=== PATIENT | male | born 1965 | race Caucasian/White ===

== ENCOUNTER 2024-05-17 06:33 | Day surgery (SDC) | payer BC, SELFPAY ==
[2024-05-17 06:53] VITALS: BP 152/86
[2024-05-17 07:03] VITALS: BMI 27.6
[2024-05-17 07:05] VITALS: BP 152/86
[2024-05-17] MEDS: LOW STRENGTH ASPIRIN 324 MG PO (07:29)
[2024-05-17 09:19] VITALS: BP 148/75
--- NOTE | 2024-05-17 09:35 | ITS.CL.CATH ---
Bridge Manager - Catheterization
Cardiac Catheterization
Procedure Report:
LEFT HEART CATHETERIZATION
Date of Procedure: May 17, 2024
Referring: Dr. Debi Tidwell, Dr. Brian Barros
PROCEDURES:
1. Coronary angiography
INDICATION: Symptomatic severe aortic stenosis
ACCESS: Right radial artery, 6 Greenlandic sheath
HEMODYNAMICS : (mmHg)
AO (s/d) : 137/87
CORONARY FINDINGS
DOMINANCE: Right
LEFT MAIN: Normal
LEFT ANTERIOR DESCENDING: The LAD arises normally from the left main and runs in the anterior interventricular groove. 2 diagonal branches arise from the mid LAD. The first diagonal branch is large and the second diagonal branch is a moderate
caliber vessel. Both diagonal branches are widely patent. The LAD remains a large caliber vessel beyond the second diagonal branch and wraps completely around the apex supplying a portion of the inferior wall.
CIRCUMFLEX: The circumflex is a large-caliber nondominant vessel. OM1 and OM 2 are both very small caliber vessels. The circumflex essentially terminates in a large OM 3 with only minor irregularities. The AV continuation of the circumflex
supplies a small posterolateral branch
RIGHT CORONARY ARTERY: The right coronary artery is a large-caliber dominant vessel that is widely patent. Only minor irregularities are noted.
VENTRICULOGRAPHY: Not done
RADIATION SUMMARY: Fluoro Time (min): 3.7, Dose (mGy): 350, DAP (Gy.cm2) : 25.5
Closure Device: TR band
CONCLUSIONS
1. Nonobstructive coronary disease
RECOMMENDATIONS
1. CT surgical evaluation planned on 05/18
Copy to: Dr. Debi Tidwell, Dr. Brian Barros
[2024-05-17 11:51] VITALS: BP 133/62
== END 2024-05-17 11:53 | disposition home or self-care (01) ==
LOC: CATH 06:33
PROVIDERS: ATTENDING PHYSICIAN Internal Medicine Interventional Cardiology; OTHER PHYSICIAN Internal Medicine Interventional Cardiology
DX: I35.0 Nonrheumatic aortic (valve) stenosis (principal); I25.10 Atherosclerotic heart disease of native coronary artery without angina pectoris; E78.5 Hyperlipidemia, unspecified
CPT/HCPCS: 93005; 93454; C1894; Q9967

== ENCOUNTER 2024-06-27 04:51 | Inpatient (IN) | payer BC, SELFPAY ==
[2024-06-08 11:51] VITALS: BMI 27.6
[2024-06-08 12:46] LABS: % Basophils 0.4 % (0-2); % Immature Granulocytes 0.4 % (0-0.5); % Lymphocytes 13.1 % (20.5-51.1); % Monocytes 11.7 % (1.7-9.3); % Neutrophils 73.4 % (42.2-75.2); Absolute Eosinophils 0.1 10^3/uL (0-0.7); Absolute Lymphocytes 0.7 10^3/uL (1.2-3.4); Absolute Monocytes 0.6 10^3/uL (0.1-0.6); Absolute Neutrophils 3.8 10^3/uL (1.4-6.5); Hematocrit 44.6 % (39.0-52.0); Hemoglobin 15.3 g/dL (13.0-18.0); Mean Corp Hgb Conc. 34.3 g/dL (33.0-37.0); Mean Corpuscular Hgb 29.7 pg (27.0-31.0); Mean Corpuscular Volume 86.4 fL (80.0-94.0); Mean Platelet Volume 9.2 fL (7.4-10.4); Nucleated Red Blood Cells % 0 % (-); Platelet Count 235 10^3/uL (130-400); Red Blood Cell Count 5.16 10^6/uL (4.70-6.10); Red Cell Dist. Width 12.9 % (11.5-14.5); White Blood Cell Count 5.2 10^3/uL (4.8-10.8)
[2024-06-08 12:48] LABS: Urine Albumin Negative (Neg - Trace); Urine Bilirubin Negative (Negative); Urine Character Clear (Clear); Urine Color Yellow; Urine Glucose Negative (Negative); Urine Ketone Negative (Negative); Urine Leukocyte Negative (Negative); Urine Nitrite Negative (Negative); Urine Occult Blood Negative (Negative); Urine Specific Gravity 1.005 (<1.030); Urine Urobilinogen Negative (Neg - 1+)
[2024-06-08 12:49] LABS: INR 0.92; PT 12.3 Sec (11.4-14.6)
[2024-06-08 12:50] LABS: APTT 30.9 Sec (23.4-35.0)
[2024-06-08 13:06] LABS: Glycohemoglobin (HgbA1c) 5.6 % (4.0-5.6)
--- NOTE | 2024-06-08 13:34 | CM ---
Chart reviewed. Met with the patient in PAT. Reviewed preoperative and postoperative instructions and restrictions. Gave patient 2 soaps, along with showering guidelines. Patient is independent of ADLS, working, lives alone in a 2 STH, 0 MARGARITA, 0
DME. Patient's brother in law is Stewartotilia Tidwell and the patient is going to be staying with his sister and Dr. Tidwell at [address] [place] [address]. Plan is for the patient to go to his sisters house with CT Transitional RN.
--- NOTE | 2024-06-08 13:41 | CM ---
Chart reviewed. Patient is in the OR today. Patient is independent of ADLS, lives alone in a 1 STH, 0 MARGARITA, 0 DME. Plan is for the patient to return home with CT Transitional RN. CM to follow
[2024-06-08 14:05] LABS: ALT (SGPT) 43 U/L (0-50); AST (SGOT) 43 U/L (17-59); Albumin 5.2 g/dl (3.5-5.0); Alkaline Phosphatase 83 U/L (38-126); Blood Urea Nitrogen 17 mg/dl (9-20); Calcium 10.2 mg/dl (8.4-10.2); Carbon Dioxide 28 mmol/L (22-30); Chloride 100 mmol/L (98-107); Direct Bilirubin 0.2 mg/dl (0.0-0.4); Estimated Creatinine Clearance 82 ml/min; Glucose 102 mg/dl (70-99); Potassium 4.6 mmol/L (3.5-5.1); Sodium 137 mmol/L (135-145); Total Protein 7.5 g/dl (6.3-8.2); eGFR > 60.00
[2024-06-27] VITALS (23 sets, daily range): BP systolic 102–149; BP diastolic 56–90; BMI 26.9
--- NOTE | 2024-06-27 06:04 | W.CVOR.SURPR ---
CVOR Surgeon Immed Pre Op
-
I have examined this patient prior to performance of the scheduled procedure.
The patient's condition is unchanged from the time of the dictated/written History and
Physical and the patient is able to undergo the scheduled procedure.
AVR (patient has opted for a biological prosthesis) + Ascending aorta replacement
[2024-06-27] MEDS: LOPRESSOR 12.5 MG PO (06:08)
[2024-06-27] MEDS: PROTONIX 40 MG PO (06:08)
[2024-06-27] MEDS: MAGNESIUM OXIDE 500 MG PO (06:08)
[2024-06-27] MEDS: BACTROBAN 2% OINTMENT 1 APPLIC NASAL ×2 (06:14→19:39)
--- NOTE | 2024-06-27 07:00 | PTCARENOTE ---
Pt admitted to room 2261. Pt confirmed 2 CHG showers at home and NPO status since midnight. VS and weight obtained. Pt clipped and wiped w/ CHG wipes. Admission questions completed. Home medications confirmed. Pt oriented to room. Questions
encouraged and answered. Ordered medications administered - see DEC. Call campuzano within reach.
[2024-06-27 07:25] LABS: ACT+ - POC 93 Seconds (82-134)
[2024-06-27 08:11] LABS: Urine Albumin Negative (Neg - Trace); Urine Bilirubin Negative (Negative); Urine Character Clear (Clear); Urine Color Yellow; Urine Glucose Negative (Negative); Urine Ketone Negative (Negative); Urine Leukocyte Negative (Negative); Urine Nitrite Negative (Negative); Urine Occult Blood Negative (Negative); Urine Urobilinogen Negative (Neg - 1+)
[2024-06-27 08:39] LABS: ACT+ - POC 599 Seconds (82-134)
[2024-06-27 08:57] LABS: B.E. - POC -1.1 mmol/L; Glucose - POC 98 mg/dl (65-99); HCO3 - POC 24 mmol/L (21-29); Hematocrit - POC 37 % PCV (42-52); Hemodilution- POC Yes; Hemoglobin Calculated - POC 12.6; Ionized Calcium - POC 1.23 mmol/L (1.12-1.27); O2 Saturation %Calculated-POC 99.9 5 (92-96); PCO2 - POC 41 mmHg (35-45); PO2 - POC 286 mmHg (80-100); POC Comment PRE; Potassium - POC 3.8 mmol/L (3.6-5.0); Sodium - POC 142 mmol/L (135-145); pH - POC 7.38 (7.35-7.45)
[2024-06-27 09:07] LABS: ACT+ - POC 543 Seconds (82-134)
[2024-06-27 09:24] LABS: B.E. - POC 2.7 mmol/L; Glucose - POC 142 mg/dl (65-99); HCO3 - POC 26 mmol/L (21-29); Hematocrit - POC 29 % PCV (42-52); Hemodilution- POC Yes; Hemoglobin Calculated - POC 9.8; Ionized Calcium - POC 1.04 mmol/L (1.12-1.27); O2 Saturation %Calculated-POC 98.7 5 (92-96); PCO2 - POC 35 mmHg (35-45); PO2 - POC 111 mmHg (80-100); POC Comment CPB; Potassium - POC 5.4 mmol/L (3.6-5.0); Sodium - POC 137 mmol/L (135-145); pH - POC 7.48 (7.35-7.45)
[2024-06-27 09:34] LABS: ACT+ - POC 483 Seconds (82-134)
[2024-06-27 09:55] LABS: B.E. - POC 2.2 mmol/L; Glucose - POC 190 mg/dl (65-99); HCO3 - POC 26 mmol/L (21-29); Hematocrit - POC 32 % PCV (42-52); Hemodilution- POC Yes; Ionized Calcium - POC 1.08 mmol/L (1.12-1.27); O2 Saturation %Calculated-POC 99.9 5 (92-96); PCO2 - POC 37 mmHg (35-45); PO2 - POC 242 mmHg (80-100); POC Comment CPB; Potassium - POC 5.8 mmol/L (3.6-5.0); Sodium - POC 137 mmol/L (135-145); pH - POC 7.46 (7.35-7.45)
[2024-06-27 10:04] LABS: ACT+ - POC 479 Seconds (82-134)
[2024-06-27 10:22] LABS: B.E. - POC 1.1 mmol/L; Glucose - POC 159 mg/dl (65-99); HCO3 - POC 26 mmol/L (21-29); Hematocrit - POC 36 % PCV (42-52); Hemodilution- POC Yes; Hemoglobin Calculated - POC 12.3; Ionized Calcium - POC 1.16 mmol/L (1.12-1.27); O2 Saturation %Calculated-POC 99.6 5 (92-96); PCO2 - POC 41 mmHg (35-45); PO2 - POC 173 mmHg (80-100); POC Comment CPB; Potassium - POC 4.6 mmol/L (3.6-5.0); Sodium - POC 140 mmol/L (135-145); pH - POC 7.41 (7.35-7.45)
[2024-06-27 10:31] LABS: ACT+ - POC 469 Seconds (82-134)
[2024-06-27 10:42] LABS: B.E. - POC -0.5 mmol/L; Glucose - POC 138 mg/dl (65-99); HCO3 - POC 25 mmol/L (21-29); Hematocrit - POC 39 % PCV (42-52); Hemodilution- POC Yes; Hemoglobin Calculated - POC 13.2; Ionized Calcium - POC 1.11 mmol/L (1.12-1.27); O2 Saturation %Calculated-POC 99.9 5 (92-96); PCO2 - POC 41 mmHg (35-45); PO2 - POC 302 mmHg (80-100); POC Comment WARM; Potassium - POC 4.5 mmol/L (3.6-5.0); Sodium - POC 141 mmol/L (135-145); pH - POC 7.39 (7.35-7.45)
[2024-06-27 10:47] LABS: ACT+ - POC 115 Seconds (82-134)
--- NOTE | 2024-06-27 10:53 | CM ---
pt in OR today, cm to follow.
[2024-06-27] MEDS: LR 250 IV ×2 (11:30→16:15)
[2024-06-27 11:37] LABS: Glucose - POC 119 mg/dl (65-99); HCO3 - POC 24 mmol/L (21-29); Hematocrit - POC 33 % PCV (42-52); Hemodilution- POC Yes; Hemoglobin Calculated - POC 11.4; Ionized Calcium - POC 1.38 mmol/L (1.12-1.27); PCO2 - POC 43 mmHg (35-45); PO2 - POC 430 mmHg (80-100); POC Comment POST; Potassium - POC 4.2 mmol/L (3.6-5.0); Sodium - POC 142 mmol/L (135-145); pH - POC 7.35 (7.35-7.45)
--- NOTE | 2024-06-27 11:39 | W.PN.CARDCBS ---
Addendum entered and electronically signed by Galindo Velasco MD 06/27/24 14:14:
I saw and examined the patient.
The ACCOUNT DEVELOPMENT REPRESENTATIVE or PA's note was reviewed and I agree with the note.
Comment: General: Awake on the ventilator
Neck: Supple, no JVD, HJR, carotids +2 B/L, no bruits bilaterally.
Heart: Non displaced PMI, RRR, no murmurs, No S3, S4, no rubs.
Lungs: Scattered rhonchi
Sternal dressings noted
Extremities: No clubbing, cyanosis or edema bilaterally.
Neuro: Grossly nonfocal, awake, alert and oriented x3.
Domo has a history of bicuspid aortic valve with aortic stenosis. He is seen status post SAVR are an ascending aortic root replacement. Currently remains intubated but awake. He is on no pressors. He remains in sinus rhythm.
Original Note:
Today's Communication / Plan
-
Check post op EKG
Continue post op care
Impression / Plan
-
PCP: Dr. Darrin Trevino
Obstetrics Gynecology Physician: Dr. Tidwell
Impression:
Bicuspid aortic valve
Severe s/p AVR and ascending aorta replacement 06/27/2024 w/ Dr Barros
Thoracic Aortic aneurysm
HLD
Echo 05/03/2024: EF 55 to 60%, GLS -18.2%, bicuspid aortic valve with severe , mean gradient 48 mmHg, ascending aorta dilation at 4.5 cm
Plan:
-Known bicuspid aortic valve with severe s/p SAVR and ascending aorta replacement 06/27/2024.
-Seen post op. Remains intubated, sedated, but waking up.
-CI 1.96.
-Check post Op EKG. Few short pauses noted on tele, in SR.
-No blood products given intra op. Post-op hgb stable at 12.8.
-CXR completed.
-Continue aspirin, crestor, zetia.
-Continue post op care. BP stable.
Progress Note - Obstetrics Gynecology Physician
Subjective
Date of Service: June 27, 2024
Remains intubated, waking up.
Objective
Labs:
Labs
Hgb 15.3 g/dL (13.0-18.0) 06/08/24 12:03
Hct 44.6 % (39.0-52.0) 06/08/24 12:03
Plt Count 235 10^3/uL (130-400) 06/08/24 12:03
PT 12.3 Sec (11.4-14.6) 06/08/24 12:03
INR 0.92 06/08/24 12:03
APTT 30.9 Sec (23.4-35.0) 06/08/24 12:03
Sodium 137 mmol/L (135-145) 06/08/24 12:03
Potassium 4.6 mmol/L (3.5-5.1) 06/08/24 12:03
BUN 17 mg/dl (9-20) 06/08/24 12:03
Creatinine 1.0 mg/dL (0.7-1.3) 06/08/24 12:03
Glucose 102 mg/dl (70-99) H 06/08/24 12:03
Vital Signs and I&O:
Vital Signs
Temp Pulse Resp Pulse Ox
98.1 F 61 16 99
06/27/24 05:42 06/27/24 05:42 06/27/24 05:42 06/27/24 05:42
Vital Signs
Temp Pulse Resp Pulse Ox
98.1 F 61 16 99
06/27/24 05:42 06/27/24 05:42 06/27/24 05:42 06/27/24 05:42
Physical Exam
Physical Exam
GEN: No distress, intubated
HEENT: supple, anicteric, mmm
LUNGS: CTA b/l, no wheezes/rales
CV: Reg, S1/S2, no murmur
EXT: No clubbing, cyanosis, or edema
NEURO: Gross non-focal
SKIN: Warm, dry, no rash. Sternal incision well approximated
[2024-06-27] MEDS: DILAUDID 0.5 MG IV (11:51)
[2024-06-27 11:53] LABS: Glucose - Point of Care 110 mg/dl (70-99)
[2024-06-27] MEDS: NSS 500 IV (11:53)
[2024-06-27 11:58] LABS: B.E. -1.8 mmol/L; HCO3 23.7 mmol/L (21-28); Ionized Calcium 1.22 mMOL/L (1.15-1.33); PCO2 42 mmHg (35-48); PO2 199 mmHg (83-108); Potassium 3.9 mMOL/L (3.5-5.1); Sodium 135 mMOL/L (136-145); pH 7.36 (7.35-7.45)
[2024-06-27 12:00] LABS: Hematocrit 36.7 % (39.0-52.0); Hemoglobin 12.8 g/dL (13.0-18.0); Platelet Count 152 10^3/uL (130-400)
[2024-06-27 12:07] LABS: INR 1.46; PT 17.6 Sec (11.4-14.6)
[2024-06-27 12:08] LABS: APTT 29.8 Sec (23.4-35.0)
[2024-06-27] MEDS: KCL 50 IV (12:10)
--- NOTE | 2024-06-27 12:15 | PTCARENOTE ---
Received pt from CVOR at 1130; pt intubated and sedated; NSR on monitor and VSS; Epicardial V wire set to back up VVI 50/6/0.8; RIGregory Boyd floated to 42, Left A-line and PIV x1 patent; Insulin, Levo and Precedex infusing see flow sheet for
details; Lungs diminished; ET 8@22; SIMV 60%, 12,5,550; CT x2 to -20 wall suction, no air leak and no crepitus noted; hypoactive bowel sounds; Beltran catheter draining clear yellow urine; palpable pulses throughout; no edema noted; all surgical sites
C/D/I; see nursing documentation for further details.
CI 1.96
CO 4.08
SVR 1470
CV PLUMBING AND HEATING CONTRACTOR at bedside LR 250ml Bolus given for hypotension.
--- NOTE | 2024-06-27 12:18 | CON.INTV ---
Consultation
Consultation Request
Date/Time Consultation Requested: 06/27/2024
Date/Time Consultation Performed: 06/27/2024
Requesting Provider: Dr. Barros
Performing Provider: Dr. Sergio Funes
Reason for Consultation: Postoperative ICU care/AVR plus ascending aortic replace
Medical History
-
History of Present Illness:
58-year-old man with known bicuspid valve morphology, with preserved ejection fraction and history of progressive aortic stenosis. Also found to have ascending aortic aneurysm.
Admitted to the hospital 06/27/2020 for AVR plus ascending aortic aneurysm repair.
Surgery underwent on 06/27/[address] Barros. No immediate complications from
Patient critical care unit where he is intubated, mechanical ventilation. Sedated
Past Medical History
Past Medical History: Other (See assessment plan)
Social History
Tobacco: Other ( never smoker)
Alcohol: Occasional
Drug: None
Personal:
Living: Alone
Family History
Family History: Unable to Obtain
Allergies / Home Medications
Allergies
Allergy/AdvReac Type Severity Reaction Status Date / Time
bee venom protein (honey bee) Allergy Swelling Verified 06/06/24 09:43
Home Medications
�Medication �Instructions �Recorded �Confirmed �Last Taken �Type
ezetimibe 10 mg tablet (Zetia) 10 mg PO HS 05/17/24 06/27/24 06/26/24 21:00 History
rosuvastatin 20 mg tablet 20 mg PO 06/06/24 06/27/24 06/26/24 21:00 History
Review of Systems
-
Unable to Obtain full review of systems at this time due to: Patient Intubation
Vitals / Labs / Diagnostic Testing
Vital Signs
Temp Pulse Resp BP Pulse Ox
96.6 F L 67 10 135/83 98
06/27/24 12:00 06/27/24 12:10 06/27/24 12:10 06/27/24 05:24 06/27/24 12:10
Laboratory Results
06/27/24
11:32
PT 17.6 H
INR 1.46
APTT 29.8
pH 7.36
pCO2 42
pO2 199 H
HCO3 23.7
O2 Delivery Level
Diagnostic Testing:
Physical Exam
-
HEENT: Normocephalic
Cardiovascular: S1/S2 and Regular Rhythm
Respiratory: Clear and Non-Labored Respirations
GI: Soft and Non Distended
Neurology: Other (Sedated, intubated on mechanical ventilation.) and Other (Opening eyes, waking up from anesthesia)
Skin: Warm
General: Comfortable
Assessment
-
Status post AVR and ascending aortic Replacement 06/27/2024-Dr. Barros
Postoperative mechanical ventilation
Conditions present prior admission:
Bicuspid aortic valve
Echo 05/03/2024: EF 55 to 60%, GLS -18.2%, bicuspid aortic valve with severe , mean gradient 48 mmHg, ascending aorta dilation at 4.5 cm
Dyslipidemia
Severe aortic stenosis
Thoracic aortic aneurysm
Assessment and plan:
He is doing well postop-currently on mechanical ventilation and appears comfortable.
ABG reviewed:Adequate oxygenation and ventilation.
Continue SIMV mode with no change
Spontaneous breathing trial per protocol once sedation wears off.
Anemia noted-no evidence of acute bleeding
Follow H&H serially
Hemodynamics -stable off vasopressors.
Arterial line not be a catheter in place
Will monitor urinary output and renal function
Chest tube with no excessive drainage-no air leak.
Chest x-ray reviewed 06/27/2024: With no pneumothorax or fluid collections. ET tube right above the nicholas-has been adjusted.
Remain nothing by mouth
Head of the bed elevation
Glycemic control per protocol
DVT prophylaxis when safe from the surgical perspective.
Critical care statement: A total of 32 minutes of critical care time was provided for this patient today. This includes management of unstable vital signs, evaluation of the patient at bedside, reviewing the patient's pertinent medical records
including ventilator settings, arterial blood gases, radiographs, microbiology, laboratory evaluations and discussion with primary team, critical care nursing, and respiratory therapy.
[2024-06-27] MEDS: ANCEF 10 IV ×2 (12:26)
[2024-06-27] MEDS: NEURONTIN PO ×2 (12:26→16:32)
--- NOTE | 2024-06-27 12:28 | W.PN.CT.SURG ---
CT Surgery Operative Note
-
CARDIAC SURGERY OPERATIVE REPORT
Preoperative Diagnosis: Aortic valve stenosis, severe with bicuspid valve morphology and ascending aortic aneurysm
Postoperative Diagnosis: Same
Procedure(s) Performed:
1. Standard sternotomy with aortic and right atrial cannulation
2. Surgical aortic valve replacement [25 mm bioprosthesis]
3. Ascending aortic replacement with a 30 mm tube graft spanning from the level of the commissures up to the distal ascending aorta
4. Placement of temporary ventricular pacing wire
5. Transesophageal echocardiography
Date of Surgery: 06/27/24
Comorbidities:
1. Congenital bicuspid aortic valve
2. Severe aortic valve stenosis
3. Ascending thoracic aneurysm, without rupture
4. Hyperlipidemia
Attending Surgeon: Brian Barros MD, MS
Assistants: Brian Robertson PA-C (present and necessary to fast food assistant restaurant manager, retraction, suction, exposure, suture management, and wound closure under my direction)
Anesthesiology: Jeffery Mcgowan MD and Colin Goodwin CRNA
Scrub and Circulating RNs: Mary Ramos RN, Toby Singh RN
Pilot Safety Inspector: Taryn Avendano CCP
Anesthesia: GETA
EBL: per perfusion records
Products: NO Blood product transfusions, he received 500cc of autologous blood scavenged from the surgical field, washed with CellSaver and returned to the patient
CPB Time: 112 minutes
Aortic Cross Clamp Time: 95 minutes
Indication(s) for Procedures: This is a 58-year-old male who is quite active. While biking he was feeling shortness of breath and he had known bicuspid valve morphology with moderate aortic valve stenosis. Subsequent echocardiogram demonstrated
severe aortic valve stenosis. He also had a known mild ascending thoracic aneurysm. Multidisciplinary team discussion with the overall consensus that given his progression and aortic valve stenosis and mild growth in his ascending thoracic aorta
4.5 cm with bicuspid aortic valve morphology, surgical intervention was deemed appropriate.
Aortic Valve Description: True type 0, 180/180 degree bicuspid aortic valve, coronary orientation was also 180 degrees / 180 degrees. Heavily calcified with extension into the annulus.
Findings: His left ventricular ejection fraction preoperatively was preserved at 65% with no regional wall motion abnormalities. He had mild to moderate degree of left ventricular hypertrophy. Following surgery his EF remained the same at 65% with
no new regional wall motion abnormalities. RV function and size were both normal. His aortic valve was heavily calcified with extension into the annulus. He was a true type 0 bicuspid aortic valve. His coronary arteries were also distributed
exactly 180 degrees / 180 degrees for 1 another. His ascending thoracic aorta was dilated and appeared abnormal and thinned out. Cannulation was performed high up towards the mid arch. His aortic valve was resected and replaced with a 25 mm
prosthesis secured into place with a total of 17 nonpledgeted 2 Ethibond sutures from LVOT through annulus through sewing cuff. These were done with core knots. The ascending thoracic aorta was then resected down past the sinotubular junction to
the level of the commissures. It was sized using a freestyle sizer to a 30 mm graft which was sewn first to the proximal portion of the root at the level of the commissures and then up to the distal ascending thoracic aorta where the caliber neck
to back down to normal size with tissue quality appearing to be normal. The suture lines were both secured using a gasket of bovine pericardium. At the conclusion of the case, he had normal left ventricular function, cardiac index was 2 and above,
no regional wall motion abnormalities, no transfusion of blood products, and was in sinus rhythm without inotropic support.
Specimen(s): Ascending thoracic aorta, and aortic valve.
Prosthesis:
1. 25mm JAY Inspiris Resilia AVR, SN [id number]
2. 30mm Ascending Aortic Straight tube graft, [place], SN [id number]
3. Bovine Pericardium, SN [id number]
Description of Procedure: The patient was taken to the operating room. Their identity and procedure to be performed were verified and they were positioned supine on the operating table. Induction via general anesthesia with endotracheal intubation
was performed and central venous access and arterial monitoring were inserted. A preoperative transesophageal echocardiogram was performed to assess cardiac function and valvular function. The patient was then prepped and draped from chin to feet in
a sterile fashion. A preoperative time-out was performed with all members of the team present. A midline chest incision was performed along with median sternotomy. The innominate vein was isolated. Full heparinization was given (a total of 43,000
units). We created a pericardial well. The aortic cannulation site was chosen where it was soft, pliable, and free of calcium. Cannulation was performed with an arterial cannula in the ascending aorta and a triple-stage venous cannula through the
right atrial appendage. The arterial cannula line had an appropriate bounce and correlating pressures with test dosing. Next, a root vent/antegrade cannula was inserted into the ascending aorta. The ACT was confirmed to be over 400 and retrograde
autologous priming was performed before commencing cardiopulmonary bypass. The pulmonary artery was away from the aorta to facilitate a clamp site and aortotomy. A left ventricular vent was placed at the right superior pulmonary vein and
secured. The aortic cross-clamp was placed after decreasing the flow on the bypass and mean arterial pressure. A total of 1.2L initial dose of antegrade Del-Nido cardioplegia solution was given and planned for re-dosing every 75 minutes as
necessary. There was rapid electro-mechanical arrest of the heart at 350 cc of cardioplegia. The left ventricle was observed for distention on echocardiogram and manual palpation. Cold slush was placed into a sponge and topically on the RV while we
systemically cooled to 34 degrees centigrade.
Carbon dioxide was used to flood the field. We manually identified the location of the right coronary take off. An aortotomy was made approximately 2cm above the sinotubular junction and the aorta was fully transected. Stay sutures were then placed
onto the root and ascending thoracic aorta. The location of both left and right coronary vessels were visualized in the root.any abnormal ascending thoracic aneurysmal tissue was cut down and removed from the surgical field. I also cut down to the
level of the commissures approximately 1 cm. The leaflets were excised and sent for pathological assessment. The annulus was debrided of any calcium being mindful of the annulus and membranous septum. The root and left ventricular outflow tract were
thoroughly irrigated to remove any debris. A total of 17 Non-pledgeted 2-0 ethibond inverted annular sutures were placed MDPP-lb-nlope circumferentially. These were brought through the sewing cuff of the prosthetic valve which as then parachuted
into place. The left and right coronary ostia were visualized and were unobstructed by the valve. A Cor-Knot device was used to secure the annular sutures. The valve was inspected and was well seated. At this point using a freestyle sizer I sized
the root to approximately 30 mm just above the level of the commissures. I then took a 30 mm straight graft and transected it. I then inverted the graft and placed it inside the new bioprosthetic valve into the LVOT and left ventricle. I then
sewed the proximal anastomosis using 4-0 Prolene in a running fashion with bovine pericardium and the outside as a gasket. Prevaleak was then used to reinforce the suture line needle holes. The graft was then everted out of the LVOT and then sized
in order to accommodate the appropriate length to reach the distal ascending thoracic aorta. Any remaining abnormal ascending thoracic aortic tissue was resected. The distal anastomosis was performed using 4-0 Prolene in a running fashion again
using a strip of bovine pericardium as a gasket. The distal suture line was also reinforced with PrevaLeak. De-airing maneuvers were performed by placing an 18-gauge needle into the ascending thoracic graft and feeling the heart, and temporary
bipolar ventricular pacing wires were placed on the base of the right ventricle. The patient was placed in a trendelenburg position and flows on bypass were lowered. The aortic cross clamp was removed and flows were slowly brought back up. The
aortotomy appeared hemostatic. Transesophageal echocardiography revealed no paravalvular leak and appropriate prosthetic function. The arch and distal thoracic aorta were normal on transesophageal echocardiogram. Once de-airing was satisfactory,
the left ventricular and root vents were removed. After verifying acceptable parameters, we initiated weaning from cardiopulmonary bypass. Once we were off cardiopulmonary bypass, the venous cannula was clamped and removed. A test dose of protamine
was administered and the patient was monitored for any adverse reaction before resuming protamine. Once half of the protamine dose was delivered, pump suckers were turned off and the systolic blood pressure was lowered for aortic decannulation. The
aortic cannula was removed and pursestrings were tied down. All cannulation sites were oversewn with a 4-0 prolene. The aortotomy suture lines were inspected and hemostasis was confirmed. Mediastinal hemostasis was obtained. Two 24Fr Jack drains
were placed within the pericardium. The sternum was approximated with 4 #7 single and 3 #8 double stainless steel wires. Fascia was approximated with #1 vicryl suture. The subcutaneous, dermis and epidermis were closed in layers in a running
fashion. The skin wound was cleansed and dressed.
All instrument, sponge, and needle counts were confirmed to be correct x 2 at the end of the operation. The patient was transferred to the cardiac intensive care unit in critical but stable condition.
I, Dr. Brian Barros, was present, scrubbed for, and performed all critical elements of this procedure.
Brian Barros MD, MS
Cardiothoracic Surgeon
[facility]
This operative dictation was created using the [employer] dictation system. Please excuse any grammatical, typographical, or 'sound alike' errors
[2024-06-27 12:32] LABS: Blood Urea Nitrogen 22 mg/dl (9-20); Estimated Creatinine Clearance 94 ml/min; Glucose 103 mg/dl (70-99); Magnesium 2.6 mg/dl (1.6-2.3)
--- NOTE | 2024-06-27 13:08 | W.PN.UPDATE ---
Update Note
Progress Note Update
58-year-old male was electively admitted on 06/27/2024 for AVR and ascending aortic replacement due to severe , bicuspid aortic valve, and thoracic aortic aneurysm.
IV fluids: 1200
U.O.:� 400
Cell Saver: 500
Blood:� none
Wires:� bipolar V-wire
Gtts: Levophed @ 4, Precedex @ 0.6, Insulin @ 0.5
Periop antibiotic: Ancef
�
NEURO: sedated on Precedex, pupils +2mm B/L
RESP: #8OT @24cm> 500/60%/14/5. Lungs clear B/L. 2 mediastinal (0cc on arrival) chest tubes to -20cm suction. Sanguineous drainage
CV: RRR +S1, S2, no S3, no�rub, no murmur. Dermabond to median sternotomy. RIJ w/[employer] locked @ 45cm. PA 26/15; CVP 10
ABD: round, soft, no BS
EXT: no edema, +2/4 DP pulses B/L, no femoral bruit, left radial A-line intact
: Beltran with clear yellow urine
�
A/P: POD #0 s/p aortic valve replacement [#25 mm Inspiris Reselia]; Ascending aortic replacement #30 mm tube graft spanning from the level of the commissures up to the distal ascending aorta
TAHIRA: report pending
- CXR with ETT at nicholas. Pulled back to 22cm and repeat CXR confirms adequate placement
- wean and extubate
- keep SBP</= 110mmHg in immediate post-op period
- will need instruction regarding antibiotic prophylaxis for dental and invasive procedures
- will need pre-discharge TTE
�
# Hyperlipidemia
- resume�home Crestor 20mg daily and Zetia 10mg daily
[2024-06-27 13:31] LABS: Glucose - Point of Care 109 mg/dl (70-99)
[2024-06-27] MEDS: TYLENOL PO (13:43)
[2024-06-27 13:49] LABS: B.E. 0.5 mmol/L; HCO3 22.6 mmol/L (21-28); Ionized Calcium 1.16 mMOL/L (1.15-1.33); PCO2 29 mmHg (35-48); PO2 166 mmHg (83-108); Potassium 4.2 mMOL/L (3.5-5.1); Sodium 135 mMOL/L (136-145)
[2024-06-27 14:05] LABS: Glucose - Point of Care 92 mg/dl (70-99)
[2024-06-27] MEDS: CALCIUM CHLORIDE 10% SYRINGE 50 MG IV (14:32)
[2024-06-27] MEDS: CALCIUM CHLORIDE 10% SYRINGE 50 ML IV (14:32)
[2024-06-27 15:04] LABS: Glucose - Point of Care 103 mg/dl (70-99)
[2024-06-27 15:06] LABS: B.E. -0.2 mmol/L; HCO3 21.8 mmol/L (21-28); PCO2 28 mmHg (35-48); PO2 175 mmHg (83-108)
[2024-06-27] MEDS: TORADOL 15 MG IV ×2 (15:26→21:03)
--- NOTE | 2024-06-27 15:29 | RESPNOTE ---
patient extubated at 1525 without incident. 100% on 6L.
[2024-06-27 15:30] LABS: Hematocrit 38.4 % (39.0-52.0); Hemoglobin 13.6 g/dL (13.0-18.0); Platelet Count 176 10^3/uL (130-400)
--- NOTE | 2024-06-27 15:30 | PTCARENOTE ---
ABGs reviewed with CV DIRECTOR AIRPORT OPERATIONS; respiratory at bedside and pt extubated.
[2024-06-27 16:25] LABS: Glucose - Point of Care 100 mg/dl (70-99)
[2024-06-27] MEDS: DILAUDID 0.25 MG IV (16:32)
[2024-06-27] MEDS: ANCEF 5 IV (16:32)
[2024-06-27] MEDS: TORADOL IV (16:39)
[2024-06-27 18:22] LABS: Glucose - Point of Care 102 mg/dl (70-99)
--- NOTE | 2024-06-27 18:27 | PTCARENOTE ---
Pt resting comfortably in bed; Sinus Skyler on monitor and VSS; Insulin infusing per protocol see flow sheet for details; assessment unchanged.
[2024-06-27] MEDS: OFIRMEV 100 IV (18:57)
[2024-06-27] MEDS: SENOKOT-S 1 TABLET PO (19:34)
[2024-06-27] MEDS: ROXICODONE 5 MG PO (19:35)
--- NOTE | 2024-06-27 19:40 | PTCARENOTE ---
Assumed care of patient at 1900. Patient found in bed at time of assessment. Patient is Aox4, follows commands appropriately, moves all extremities. Lung sounds are diminished throughout, patient 99% on 6L via NC, patient has CTx2: 2xmeds draining
red sanguineous to single atrium. Heart sounds have a regular rate and rhythm, patient is SR/SB with BBB and occasional v pacing on the monitor. Patient has V wires with VVI settings 50/8/0.8. There is a rub present on auscultation. Patient has
normal palpable pulses and no edema is noted. Patient has hypoactive BS throughout soft nontender abdomen and there is a amador in place draining clear yellow urine. Patient has a sternal incision that is approx with surg adhesive REINALDO and 4x4 [address]
dressing over CT wounds that is CDI. Patient has R IJ cordis with swan at 42 cm, L radial johan, R FA PIV. Patient has an insulin gtt and is receiving Cordis/VIP KVO. Vital signs as follows: T-98.8 HR-56 BP-106/56 MAP-72 RR-13 PAP- 21/12 CVP-11.
Patient with c/o 6/10 sternal pain 2/2 sternal incision and chest tubes. Given IV ofirmev and Anamika 5x1 at this time. Will continue to monitor pain.
[2024-06-27 20:08] LABS: Glucose - Point of Care 93 mg/dl (70-99)
[2024-06-27] MEDS: NITROGLYCERIN PREMIX 250 IV (20:35)
[2024-06-27] MEDS: ZETIA 10 MG PO (21:02)
[2024-06-27] MEDS: CRESTOR 20 MG PO (21:03)
[2024-06-27] MEDS: NEURONTIN 100 MG PO (21:03)
[2024-06-27 21:17] LABS: Glucose - Point of Care 122 mg/dl (70-99)
--- NOTE | 2024-06-27 21:50 | PTCARENOTE ---
Patient noted to have SBP higher than parameters outlined in cardene order SBP<110. CT PA notified. Received orders for Nitro gtt titrated to keep SBP<120. Start at 5mcg for SBP of 124 at 2034. Will continue to titrate per parameters.
[2024-06-27 22:07] LABS: Glucose - Point of Care 110 mg/dl (70-99)
[2024-06-27] MEDS: TYLENOL 1000 MG PO (23:04)
[2024-06-27 23:07] LABS: Glucose - Point of Care 102 mg/dl (70-99)
[2024-06-28] VITALS (26 sets, daily range): BP systolic 96–144; BP diastolic 51–72; PULSE 76; O2SAT 96–100; BMI 26.8
[2024-06-28 00:07] LABS: Glucose - Point of Care 103 mg/dl (70-99)
--- NOTE | 2024-06-28 00:31 | PTCARENOTE ---
Patient reassessed. VSS. Patient is in SR at this time no paced beats. Nitro at 10. Insulin column 1. No c/o pain at this time. Patient is stable.
[2024-06-28] MEDS: ANCEF 5 IV ×2 (01:05→09:02)
[2024-06-28 02:07] LABS: Glucose - Point of Care 102 mg/dl (70-99)
[2024-06-28] MEDS: ROXICODONE 5 MG PO (02:30)
[2024-06-28] MEDS: TORADOL 15 MG IV ×5 (03:05→23:27)
--- NOTE | 2024-06-28 03:18 | W.PN.CT ---
Today's Communication / Plan
-
Plan:
-No major issues overnight. Hemodynamically and neurologically intact
-Successfully extubated on 06/27/24 @ 1525
-Weaned of Levophed and NTG gtt (to maintain SBP </= 110) overnight. Remains on insulin gtt per protocol
-Last CI 2.53, U/O since OR 1300
-Postop EKG c/w acute pericarditis, +rub noted. Started on Toradol and Colchicine
-Cont. current meds (ASA, Zetia, Crestor; holding Amiodarone and BB given postop intermittent pacer dependence)
-D/C'd twyla and a-line this AM @ 0430
-Will d/c amador this AM @ 0600
-Telemetry phase today once off insulin gtt
-Monitor chest tube drainage: 2Meds 130/310
-Maintain cordis
-Maintain temporary V wires (will pull before d/c home)
-OOB into chair/Ambulate
-Wean off of O2 as tolerated
-Encourage use of IS
Assessment / Plan
-
Assessment:
-S/P sternotomy/Surgical aortic valve replacement [25 mm bioprosthesis]/Ascending aortic replacement with a 30 mm tube graft spanning from the level of the commissures up to the distal ascending aorta, by Dr. Barros, 06/28/24, pod#1
-Congenital bicuspid aortic valve
-Severe aortic valve stenosis
-Ascending thoracic aneurysm (4.3 cm), without rupture
-LVEF 60-65% per intraop TAHIRA
-Hyperlipidemia
-S/p R TKA, 05/25/2023
-S/P Achilles repair, 1989
-Acute postop blood loss/Anemia (stable, received 500 cc of cell saver intraop)
-Acute postop atelectasis
-Acute postop hypovolemia with subsequent hypervolemia
-Acute postop pericarditis (+rub)
Discussed patient care with: Cardiology, Nursing, Respiratory Therapy, Pharmacy and Care Team
Subjective
Procedure
-S/P sternotomy/Surgical aortic valve replacement [25 mm bioprosthesis]/Ascending aortic replacement with a 30 mm tube graft spanning from the level of the commissures up to the distal ascending aorta, by Dr. Barros, 06/28/24
-
Date of Service: June 28, 2024
Pt c/o incisional pain, relieved by current analgesia. EKG with global st-elevation c/w acute pericarditis, started on Toradol and Colchicine
Objective Data
-
PT 17.6 Sec (11.4-14.6) H 06/27/24 11:32
INR 1.46 06/27/24 11:32
APTT 29.8 Sec (23.4-35.0) 06/27/24 11:32
Vital Signs
Vital Signs
Temp Pulse Resp BP Pulse Ox
98.9 F 75 14 116/64 97
06/28/24 03:04 06/28/24 03:04 06/28/24 03:04 06/28/24 03:04 06/28/24 03:04
CT Intake/Output/Weight
06/27/24 06/27/24 06/28/24
06:59 18:59 06:59
Intake Total 838.1 / 1072.2 234.1 / 1072.2
Output Total 1025 / 1495 470 / 1495
Balance -186.9 / -422.8 -235.9 / -422.8
SaO2: 97 (2L)
Physical Exam
-
General: Awake, Oriented and AOx3
Cardiovascular: Regular rate & rhythm, No Murmurs and Rub
Respiratory: Decreased Breath Sounds (at bases, otherwise clear)
Sternum: Stable
Incision: Clean, Dry, Intact and Dressing Intact
Extremities: No Edema
Data Reviewed
-
Lab Results: Results Reviewed
Medications: Active Meds Reviewed
Chest X-Ray: Report Reviewed and Image Reviewed
ECG: Report Reviewed and Image Reviewed
[2024-06-28 03:48] LABS: Hematocrit 34.3 % (39.0-52.0); Hemoglobin 12.2 g/dL (13.0-18.0); Mean Corp Hgb Conc. 35.6 g/dL (33.0-37.0); Mean Corpuscular Hgb 30.5 pg (27.0-31.0); Mean Corpuscular Volume 85.8 fL (80.0-94.0); Mean Platelet Volume 9.6 fL (7.4-10.4); Platelet Count 157 10^3/uL (130-400); Red Cell Dist. Width 13.2 % (11.5-14.5); White Blood Cell Count 12.8 10^3/uL (4.8-10.8)
[2024-06-28 04:08] LABS: Blood Urea Nitrogen 25 mg/dl (9-20); Calcium 8.7 mg/dl (8.4-10.2); Carbon Dioxide 22 mmol/L (22-30); Chloride 109 mmol/L (98-107); Estimated Creatinine Clearance 85 ml/min; Glucose 98 mg/dl (70-99); Magnesium 1.8 mg/dl (1.6-2.3); Potassium 4.6 mmol/L (3.5-5.1); Sodium 141 mmol/L (135-145); eGFR > 60.00
[2024-06-28 04:10] LABS: Glucose - Point of Care 115 mg/dl (70-99)
[2024-06-28 05:03] LABS: Hepatitis C Antibody Negative (Negative)
--- NOTE | 2024-06-28 06:00 | PTCARENOTE ---
Patient reassessed. VSS. Labs obtained. AM hygiene care provided. Patient delined. Ruby discontinued DTV 1200. OOB to chair without difficultly.
[2024-06-28] MEDS: TYLENOL 1000 MG PO ×3 (06:33→21:28)
--- NOTE | 2024-06-28 07:14 | ECGCV ---
Lizzie Gamboa notified of ECG critical value identified by electronic interpretation on ECG completed on 06/28/24, at 0500.
[2024-06-28] MEDS: SENOKOT-S 1 TABLET PO ×2 (07:44→19:32)
[2024-06-28] MEDS: VITAMIN C 500 MG PO (07:44)
[2024-06-28] MEDS: NEURONTIN 100 MG PO ×3 (07:44→21:27)
[2024-06-28] MEDS: MAGNESIUM OXIDE 500 MG PO ×2 (07:44→19:32)
[2024-06-28] MEDS: PROTONIX 40 MG PO (07:44)
[2024-06-28] MEDS: COLCHICINE 0.6 MG PO ×2 (07:44→19:33)
[2024-06-28] MEDS: LOPRESSOR 12.5 MG PO ×2 (07:45→19:32)
[2024-06-28] MEDS: LOW STRENGTH ASPIRIN 81 MG PO (07:45)
[2024-06-28] MEDS: LIDOCAINE 4% PATCH 1 PATCH TOPICAL (07:45)
[2024-06-28] MEDS: FEOSOL 325 MG PO (07:45)
[2024-06-28] MEDS: BACTROBAN 2% OINTMENT 1 APPLIC NASAL ×2 (07:45→19:33)
[2024-06-28 08:06] LABS: Glucose - Point of Care 102 mg/dl (70-99)
[2024-06-28 08:06] LABS: Glucose - Point of Care 117 mg/dl (70-99)
--- NOTE | 2024-06-28 08:16 | W.PN.ANS.POP ---
Anesthesia Post Operative
- Anesthesia Post Op Note
Vital Signs Stable-See Nursing Note: Yes
Airway Patent: Yes
Adequate Pain Control: Yes
Change in Mental Status: No
Current Postoperative Nausea & Vomiting: No
Anesthesia Complications: No
General Anesthetic Recall: No
Unplanned Admission: No
Post Op Hydration Adequate: Yes
--- NOTE | 2024-06-28 08:40 | PTCARENOTE ---
Assumed care of patient at 0700. Pt is awake, alert, and oriented. No complaints of pain at this time. Pt remains SR with HR 70's. BP 97/67 MAP 76. Audible rub on auscultation. Epicardial V wire in place set to VVI 50/6/0.8. Pulse oximetry 97% on
room air. Mediastinal chest tubes x2 in place, no sign of air leak or crepitus, drainage serosanguineous. Pt tolerating clear liquid diet. Due to void. Midsternal incision approximated and REINALDO. Right IJ cordis in place with KVO. Pt remains on
insulin gtt per glycemic protocol. Pt currently resting comfortably OOB in chair with call campuzano within reach.
[2024-06-28] MEDS: NSS IV (08:56)
--- NOTE | 2024-06-28 09:30 | W.PN.CARDCBS ---
Today's Communication / Plan
-
RECOMMENDATIONS:
-encouraged incentive spirometer
-clinically looking good
Impression / Plan
-
PCP: Dr. Darrin Trevino
Bobtailer: Dr. Tidwell
Impression:
Bicuspid aortic valve
Severe s/p AVR and ascending aorta replacement 06/27/2024 w/ Dr Barros
Thoracic Aortic aneurysm
HLD
Echo 05/03/2024: EF 55 to 60%, GLS -18.2%, bicuspid aortic valve with severe , mean gradient 48 mmHg, ascending aorta dilation at 4.5 cm
Plan:
-Known bicuspid aortic valve with severe s/p SAVR and ascending aorta replacement 06/27/2024.
-Looks good and without complaints
-ECG reviewed: more of IVCD today
-Continue aspirin, crestor, zetia.
-Continue post op care. BP stable.
-Telemetry reviewed and stable
Progress Note - Bobtailer
Subjective
Date of Service: June 28, 2024
He is extubated and sitting in a chair. No complaints. He is using incentive spirometer
Objective
Labs:
06/28/24 03:24
06/28/24 03:23
Labs
Hgb 12.2 g/dL (13.0-18.0) L 06/28/24 03:24
Hct 34.3 % (39.0-52.0) L 06/28/24 03:24
Plt Count 157 10^3/uL (130-400) 06/28/24 03:24
PT 15.0 Sec (11.4-14.6) H 06/28/24 03:24
INR 1.20 06/28/24 03:24
APTT 29.8 Sec (23.4-35.0) 06/27/24 11:32
Sodium 141 mmol/L (135-145) 06/28/24 03:23
Potassium 4.6 mmol/L (3.5-5.1) 06/28/24 03:23
BUN 25 mg/dl (9-20) H 06/28/24 03:23
Creatinine 1.0 mg/dL (0.7-1.3) 06/28/24 03:23
Glucose 98 mg/dl (70-99) 06/28/24 03:23
Vital Signs and I&O:
Vital Signs
Temp Pulse Resp BP Pulse Ox
98.3 F 68 16 96/61 97
06/28/24 08:00 06/28/24 09:15 06/28/24 08:00 06/28/24 09:00 06/28/24 08:53
Vital Signs
Temp Pulse Resp BP Pulse Ox
98.3 F 68 16 96/61 97
06/28/24 08:00 06/28/24 09:15 06/28/24 08:00 06/28/24 09:00 06/28/24 08:53
Intake & Output
06/25/24 06/26/24 06/27/24 06/28/24
23:59 23:59 23:59 23:59
Intake Total 955.6 / 955.6 202.1 / 202.1
Output Total 1310 / 1310 485 / 485
Balance -354.4 / -354.4 -282.9 / -282.9
Physical Exam
Physical Exam
GEN: AAO x 3. No acute distress
HEENT: NC/AT, sclera are anicteric,
CHEST: Sternal incision well approximated.
LUNGS: Clear anteriorly. Chest tube in place.
CV: Regular rate and rhythm. Rub. Soft murmur USB
EXT: No CCE
NEURO: No focal neurologic deficits
ECG: Sinus with IVCD. Similar to post op.
[2024-06-28 10:41] LABS: Glucose - Point of Care 116 mg/dl (70-99)
[2024-06-28 11:23] LABS: Glucose - Point of Care 124 mg/dl (70-99)
--- NOTE | 2024-06-28 11:32 | PTCARENOTE ---
Pt remains SR with HR 70's. BP 108/65 MAP 79. Pulse oximetry 98% on room air. Pt ambulated with RN assistance around unit, without issue. Pt now back in chair resting comfortably. Minimal complaints at this time, scheduled Toradol to be
administered.
--- NOTE | 2024-06-28 12:30 | PTCARENOTE ---
pt received from previous RN, agree w/ previous assessment. OOB in chair for lunch. IS encouraged. voids.
--- NOTE | 2024-06-28 13:41 | W.PN.INTV ---
Today's Communication / Plan
Recommendations
Continue postoperative care
Incentive spirometry
Analgesia with narcotics
Increase activity as able
Continue with cardiac management
Follow chest tube output
Daily chest x-ray
Signed off
Assessment
-
Status post AVR and ascending aortic Replacement 06/27/2024-Dr. Barros
Postoperative mechanical ventilation
Conditions present prior admission:
Bicuspid aortic valve
Echo 05/03/2024: EF 55 to 60%, GLS -18.2%, bicuspid aortic valve with severe , mean gradient 48 mmHg, ascending aorta dilation at 4.5 cm
Dyslipidemia
Severe aortic stenosis
Thoracic aortic aneurysm
Assessment and plan:
postoperative day 1
Extubated/sitting out of bed. Comfortable. Denies any significant pain
Encourage incentive spirometer
Increase activity as able
Analgesia with narcotics-monitor respiratory status closely.
Anemia-hemoglobin has been stable. No evidence for bleeding.
Hemodynamics -stable off vasopressors.
Arterial line has been discontinued.
Renal function urinary output normal
Chest tube with no excessive drainage-no air leak. Chest x-ray 06/28/2024: Reviewed showed no acute abnormalities.
No pneumothorax
Chest x-ray reviewed 06/27/2024: With no pneumothorax or fluid collections. ET tube right above the nicholas-has been adjusted.
Advance diet as tolerated
Head of the bed elevation
Glycemic control per protocol
DVT prophylaxis when safe from the surgical perspective.
Patient has been transferred to telemetry.
Critical care team will sign off
Subjective Dataa
Subjective Data
Date of Service:
Date of Service: June 28, 2024
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
Subjective:
No major overnight events
Pain is relatively controlled
Denies shortness of breath at rest
Review of Systems
General: Fever (n)
Cardiopulmonary: Dyspnea (None at rest)
GI: Abdominal Pain (n) and Nausea (n)
Neuro: Headache (n)
Objective Data
Data Reviewed
Vital Signs / I&O / Oxygen:
Vital Signs
Temp Pulse Resp BP Pulse Ox
98.1 F 74 18 108/65 98
06/28/24 11:04 06/28/24 12:30 06/28/24 11:04 06/28/24 12:00 06/28/24 11:04
Intake and Output
06/27/24 06/28/24 06/29/24
06:59 06:59 06:59
Intake Total 1135.3 / 1135.3 64.8 / 64.8
Output Total 1720 / 1720 425 / 425
Balance -584.7 / -584.7 -360.2 / -360.2
SaO2 [CPAP] 100
SaO2 [SIMV] 100
SaO2 98
Nasal Cannula flow liters per 2
minute
Physical Exam
General: Comfortable
HEENT: Normocephalic
Cardiovascular: S1-S2
Respiratory: Clear, Non-Labored Respirations and Other (Chest tube in place without air leak or excessive drainage.)
GI: Soft and Non Distended
Neurology: Awake and Alert
Skin: Warm
Labs/Micro/Reports
Lab Data
06/28/24 03:24
06/28/24 03:23
Laboratory Results
06/27/24 06/27/24 06/28/24
13:40 14:43 03:24
PT 15.0 H
INR 1.20
pH 7.50 H 7.50 H
pCO2 29 L 28 L
pO2 166 H 175 H
HCO3 22.6 21.8
O2 Delivery Level
[2024-06-28] MEDS: FERRLECIT 110 MG IV (15:05)
--- NOTE | 2024-06-28 15:13 | PTCARENOTE ---
pt VSS, no changes in assessment. OOB in chair. pt ambulated to bathroom, +BM. oral hygiene performed.
--- NOTE | 2024-06-28 20:00 | PTCARENOTE ---
Received pt from [facility]; pt resting comfortably in chair. NSR on monitor, VSS. Pt is AAOX4. Heart sounds audible, rub present, radial and DP pulses palpable, no edema noted, temp epicardial V-wires insulated. lungs diminished at b/l bases, spo2
98% on RA, x2 MS CT tp -20 wall suction, no air leaks, no tidaling, no crepitus. +BS x4 quadrants, abdomen, soft non tender, LBM 06/28. pt voiding clear yellow urine. surgical sites maintained. right IJ cordis and PIV maintained. Pt ambulated x1 with
. call campuzano within reach. will continue to monitor.
[2024-06-28] MEDS: ZETIA 10 MG PO (21:27)
[2024-06-28] MEDS: CRESTOR 20 MG PO (21:28)
[2024-06-29] VITALS (21 sets, daily range): BP systolic 106–140; BP diastolic 59–106; PULSE 76; O2SAT 96–98; BMI 27.3
--- NOTE | 2024-06-29 | PTCARENOTE ---
pt assessment unchanged; NSR on monitor, VSS. pt ambulated x1 before bed, standby assistance only. pt assisted into bed and is resting comfortably. call campuzano within reach. will continue to monitor.
[2024-06-29] MEDS: FLEXERIL 5 MG PO ×2 (03:41→21:16)
[2024-06-29 03:51] LABS: Hematocrit 31.3 % (39.0-52.0); Hemoglobin 10.8 g/dL (13.0-18.0); Mean Corp Hgb Conc. 34.5 g/dL (33.0-37.0); Mean Corpuscular Hgb 29.9 pg (27.0-31.0); Mean Corpuscular Volume 86.7 fL (80.0-94.0); Mean Platelet Volume 9.7 fL (7.4-10.4); Platelet Count 145 10^3/uL (130-400); Red Blood Cell Count 3.61 10^6/uL (4.70-6.10); Red Cell Dist. Width 13.3 % (11.5-14.5); White Blood Cell Count 10.3 10^3/uL (4.8-10.8)
--- NOTE | 2024-06-29 04:00 | PTCARENOTE ---
Pt assessment unchanged; pt resting comfortably in bed. NSR on monitor. VSS. AM labs drawn and sent. call campuzano within reach. will continue to monitor.
[2024-06-29 04:22] LABS: Blood Urea Nitrogen 29 mg/dl (9-20); Calcium 9.1 mg/dl (8.4-10.2); Carbon Dioxide 31 mmol/L (22-30); Chloride 102 mmol/L (98-107); Estimated Creatinine Clearance 77 ml/min; Glucose 128 mg/dl (70-99); Magnesium 2.3 mg/dl (1.6-2.3); Potassium 4.8 mmol/L (3.5-5.1); Sodium 137 mmol/L (135-145); eGFR > 60.00
[2024-06-29] MEDS: TYLENOL 1000 MG PO ×3 (05:57→21:15)
--- NOTE | 2024-06-29 06:21 | W.PN.CT ---
Today's Communication / Plan
-
-pod #2
-looks and feels well. Ambulates in hallways without difficulty
-hypotension improved - tolerated BB
-weaned off O2- pOx 95% on RA
-CT output: 2 meds 110/275 in 12/24 hrs
-current meds: (ASA, Crestor, Zetia, Lopressor, Colchicine 0.6 bid, vit C, iv/po iron). Amio on hold- will start to prevent paf
-encourage IS (2500 so far), continue to ambulate
Assessment / Plan
-
Assessment:
-S/P sternotomy/Surgical aortic valve replacement [25 mm bioprosthesis]/Ascending aortic replacement with a 30 mm tube graft spanning from the level of the commissures up to the distal ascending aorta, by Dr. Barros, 06/27/24, pod#2
-Congenital bicuspid aortic valve
-Severe aortic valve stenosis
-Ascending thoracic aneurysm (4.3 cm), without rupture
-LVEF 60-65% per intraop TAHIRA
-Hyperlipidemia
-S/p R TKA, 05/25/2023
-S/P Achilles repair, 1989
-Acute postop blood loss/Anemia (stable, received 500 cc of cell saver intraop)
-Acute postop atelectasis
-Acute postop hypovolemia with subsequent hypervolemia
-Acute postop pericarditis (+rub)- tx with Colchicine and Toradol
Discussed patient care with: Nursing and Care Team
Subjective
Procedure
-S/P sternotomy/Surgical aortic valve replacement [25 mm bioprosthesis]/Ascending aortic replacement with a 30 mm tube graft spanning from the level of the commissures up to the distal ascending aorta, by Dr. Barros, 06/27/24
-
Date of Service: June 29, 2024
Objective Data
-
PT 15.0 Sec (11.4-14.6) H 06/28/24 03:24
INR 1.20 06/28/24 03:24
APTT 29.8 Sec (23.4-35.0) 06/27/24 11:32
Vital Signs
Vital Signs
Temp Pulse Resp BP Pulse Ox
98.1 F 82 20 122/67 95
06/28/24 23:30 06/28/24 23:30 06/28/24 23:30 06/28/24 23:30 06/28/24 23:30
CT Intake/Output/Weight
06/28/24 06/28/24 06/29/24
06:59 18:59 06:59
Intake Total 297.2 / 1135.3 214.8 / 214.8
Output Total 695 / 1720 465 / 895 430 / 895
Balance -397.8 / -584.7 -250.2 / -680.2 -430 / -680.2
SaO2: 95
Physical Exam
-
General: Awake and AOx3
Cardiovascular: Regular rate & rhythm, No Murmurs and Rub
Respiratory: Rales (at L base. No wheeze) and Decreased Breath Sounds
Sternum: Stable
Incision: Clean, Dry and Intact
Extremities: No Edema (2+ DPs b/l)
Abdomen: soft, nondistended, nontender, + bowel sounds, + BM
Data Reviewed
-
Lab Results: Results Reviewed
Medications: Active Meds Reviewed
Chest X-Ray: Report Reviewed and Image Reviewed
ECG: Report Reviewed and Image Reviewed
--- NOTE | 2024-06-29 08:00 | PTCARENOTE ---
pt received from previous RN, oriented, OOB in chair. SR on the monitor, HR 70-80s. +rub. V wire insulated. SBP 120-140s. palpable pulses, no edema. pt on RA, 96% POX. lungs diminished in bases. IS encouraged. CTx2, no air leak or crepitus noted. pt
abdomen s/n, denies n/v. +BS. diet tolerated well. voids. 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 chest tube site c/d/i. RIJ Cordis maintained. PIV. pt placed back to bed, CERTIFIED PEDORTHOTIST Cassandra Squires pulled wire. pt on bedrest x1 hr, q15 VS in progress. see worklist for VS, I&O,
and assessment.
--- NOTE | 2024-06-29 09:30 | PTCARENOTE ---
Med CTs dc'd as ordered. dressing c/d/i. pt OOB to chair for breakfast.
[2024-06-29] MEDS: MAGNESIUM OXIDE 500 MG PO ×2 (09:38→19:24)
[2024-06-29] MEDS: PACERONE 200 MG PO ×3 (09:38→21:16)
[2024-06-29] MEDS: SENOKOT-S 1 TABLET PO ×2 (09:38→19:24)
[2024-06-29] MEDS: FEOSOL 325 MG PO (09:39)
[2024-06-29] MEDS: BACTROBAN 2% OINTMENT 1 APPLIC NASAL ×2 (09:39→19:25)
[2024-06-29] MEDS: LOPRESSOR 12.5 MG PO ×2 (09:39→19:25)
[2024-06-29] MEDS: NEURONTIN 100 MG PO ×3 (09:39→21:16)
[2024-06-29] MEDS: LOW STRENGTH ASPIRIN 81 MG PO (09:39)
[2024-06-29] MEDS: VITAMIN C 500 MG PO (09:39)
[2024-06-29] MEDS: PROTONIX 40 MG PO (09:39)
[2024-06-29] MEDS: COLCHICINE 0.3 MG PO (09:39)
[2024-06-29] MEDS: LIDOCAINE 4% PATCH TOPICAL (09:40)
[2024-06-29] MEDS: LASIX 20 MG PO (09:56)
--- NOTE | 2024-06-29 11:29 | CM ---
CM following for DC planning needs.
Met w/ patient at bedside.
Patient is POD#2; reports that he is feeling well.
DC plan is to go to his sister/ [place] home, [address] [place], [place] [id number]. [place] before returning to his home in [place] on Thursday AM.
Anticipated DC plan is for [facility] RN visit at family's home prior to return home.
CM to follow.
--- NOTE | 2024-06-29 12:15 | PTCARENOTE ---
pt VSS, no changes in assessment. pt ambulates independently. voids.
--- NOTE | 2024-06-29 14:23 | W.PN.CARDCBS ---
Addendum entered and electronically signed by Gary Canada MD 06/29/24 15:34:
I saw and examined the patient.
The Receiving Tank Operator's note was reviewed and I agree with the note.
Comment: Briefly, 58-year-old man with past medical history of severe aortic stenosis in the setting of bicuspid aortic valve and ascending thoracic aneurysm who underwent aortic valve and ascending aorta replacement on 06/27/2024
Resting comfortably out of bed to chair this morning and tells me he has been ambulating in the halls
Hemodynamically stable, not requiring pressor or inotrope support
Telemetry was unremarkable overnight, patient is maintaining normal sinus rhythm
Volume status appears reasonable on exam
Agree with current cardiac meds
We will continue to follow
Original Note:
Today's Communication / Plan
-
doing well
continue post op care
in SR on BB/amio
Impression / Plan
-
PCP: Dr. Darrin Trevino
Primary Retirement Specialist: Dr. Tidwell
Impression:
Bicuspid aortic valve
Severe s/p AVR and ascending aorta replacement 06/27/2024 w/ Dr Barros
Thoracic Aortic aneurysm
HLD
Echo 05/03/2024: EF 55 to 60%, GLS -18.2%, bicuspid aortic valve with severe , mean gradient 48 mmHg, ascending aorta dilation at 4.5 cm
Plan:
-Known bicuspid aortic valve with severe s/p SAVR and ascending aorta replacement 06/27/2024.
-doing well
-remains in SR upon review of tele. tolerating BB/amiodarone. BPs stable
-Continue aspirin, crestor, zetia.
-colchicine dose decreased
-Continue post op care
-OOB without issues
-for possible DC to home tomorrow
-follow up with [facility]
-d/w nursing
Progress Note - Retirement Specialist
Subjective
Date of Service: June 29, 2024
no issues overnight. feeling well
Objective
Labs:
06/29/24 03:25
06/29/24 03:25
Labs
Hgb 10.8 g/dL (13.0-18.0) L 06/29/24 03:25
Hct 31.3 % (39.0-52.0) L 06/29/24 03:25
Plt Count 145 10^3/uL (130-400) 06/29/24 03:25
PT 15.0 Sec (11.4-14.6) H 06/28/24 03:24
INR 1.20 06/28/24 03:24
APTT 29.8 Sec (23.4-35.0) 06/27/24 11:32
Sodium 137 mmol/L (135-145) 06/29/24 03:25
Potassium 4.8 mmol/L (3.5-5.1) 06/29/24 03:25
BUN 29 mg/dl (9-20) H 06/29/24 03:25
Creatinine 1.1 mg/dL (0.7-1.3) 06/29/24 03:25
Glucose 128 mg/dl (70-99) H 06/29/24 03:25
Vital Signs and I&O:
Vital Signs
Temp Pulse Resp BP Pulse Ox
98.4 F 73 16 106/85 97
06/29/24 11:21 06/29/24 14:15 06/29/24 11:21 06/29/24 11:21 06/29/24 11:21
Vital Signs
Temp Pulse Resp BP Pulse Ox
98.4 F 73 16 106/85 97
06/29/24 11:21 06/29/24 14:15 06/29/24 11:21 06/29/24 11:21 06/29/24 11:21
Intake & Output
06/27/24 06/28/24 06/29/24 06/30/24
07:59 07:59 07:59 07:59
Intake Total 1135.3 / 1146.5 224.8 / 224.8
Output Total 1720 / 1760 1305 / 1305 1710 / 1710
Balance -584.7 / -613.5 -1080.2 / -1080.2 -1700 / -1700
Physical Exam
Physical Exam
GEN: No distress, awake, alert, oriented x3. sitting in chair
HEENT: supple, anicteric, mmm, eomi
LUNGS: CTA B/L, no wheezes/rales
CV: Reg, S1/S2, no murmur
EXT: No cyanosis, clubbing, edema
NEURO: Gross non-focal
SKIN: Warm, pink, dry. No rash. Sternotomy dressing c/d/i.
[2024-06-29] MEDS: FERRLECIT 110 MG IV (15:04)
--- NOTE | 2024-06-29 15:04 | W.PN.UPDATE ---
Update Note
Progress Note Update
Patient has not required pacing wires. There has been no bradycardia, arrhythmias, complete heart block, or significant pauses.
Site was cleansed with CHG thoroughly.
ventricular epicardial pacing wires were pulled. Bedrest x1 hour and VS [id number] x 4. Mediastinal CT to be removed 1 hour later
Carmela ROD
Cardiac Surgery
[2024-06-29] MEDS: NSS 500 IV (15:08)
--- NOTE | 2024-06-29 16:00 | PTCARENOTE ---
pt VSS, no changes in assessment. voids in bathroom independently. pt transferred to IVU w/ all belongings, report given to Kristin HERNANDEZ.
[2024-06-29] MEDS: ZETIA 10 MG PO (21:16)
[2024-06-29] MEDS: CRESTOR 20 MG PO (21:16)
--- NOTE | 2024-06-29 21:49 | PTCARENOTE ---
Pt. received at change of shift. Pt. seen and assessed in room. Pt. AOx3, tele reading NSR in the 70s. VS WNL. Only complaints of pain include when coughing. Pain site at sternum. Pain rated 3/10. Pt. received scheduled tylenol. Continuing to
monitor pain and the patient. Call campuzano within reach.
--- NOTE | 2024-06-30 01:32 | W.PN.CT ---
Today's Communication / Plan
-
-pod #3
-ambulates without problems, no complaints
-weaned off O2
-follow 2v-CXR
-current meds: (ASA, Crestor, Zetia, Lopressor, Colchicine 0.3 qd, Amio, vit C, iv/po iron).
-encourage IS (2500 so far), continue to ambulate
-possible d/c soon
Assessment / Plan
-
Assessment:
-S/P sternotomy/Surgical aortic valve replacement [25 mm bioprosthesis]/Ascending aortic replacement with a 30 mm tube graft spanning from the level of the commissures up to the distal ascending aorta, by Dr. Barros, 06/27/24, pod#3
-Congenital bicuspid aortic valve
-Severe aortic valve stenosis
-Ascending thoracic aneurysm (4.3 cm), without rupture
-LVEF 60-65% per intraop TAHIRA
-Hyperlipidemia
-S/p R TKA, 05/25/2023
-S/P Achilles repair, 1989
-Acute postop blood loss/Anemia (stable, received 500 cc of cell saver intraop)
-Acute postop atelectasis
-Acute postop hypovolemia with subsequent hypervolemia
-Acute postop pericarditis (+rub)- tx with Colchicine and Toradol
Discussed patient care with: Nursing and Care Team
Subjective
Procedure
-S/P sternotomy/Surgical aortic valve replacement [25 mm bioprosthesis]/Ascending aortic replacement with a 30 mm tube graft spanning from the level of the commissures up to the distal ascending aorta, by Dr. Barros, 06/27/24
-
Date of Service: June 30, 2024
Objective Data
-
PT 15.0 Sec (11.4-14.6) H 06/28/24 03:24
INR 1.20 06/28/24 03:24
APTT 29.8 Sec (23.4-35.0) 06/27/24 11:32
Vital Signs
Vital Signs
Temp Pulse Resp BP Pulse Ox
98 F 82 16 124/79 97
06/29/24 19:51 06/29/24 22:45 06/29/24 15:03 06/29/24 22:37 06/29/24 15:52
CT Intake/Output/Weight
06/29/24 06/29/24 06/30/24
06:59 18:59 06:59
Intake Total 140 / 140
Output Total 840 / 1305 2009
Balance -840 / -1090.2 -1870 / -1870
SaO2: 97
Physical Exam
-
General: Awake and AOx3
Cardiovascular: Regular rate & rhythm, No Murmurs and No Rub
Respiratory: Clear and Decreased Breath Sounds
Incision: Clean, Dry and Intact
Extremities: No Edema (2+DPs b/l)
Abdomen: soft, nontender, nondistended, + bowel sounds, + BM
Data Reviewed
-
Lab Results: Results Reviewed
Medications: Active Meds Reviewed
Chest X-Ray: Report Reviewed and Image Reviewed
ECG: Report Reviewed and Image Reviewed
[2024-06-30 03:45] VITALS: BP 112/76
[2024-06-30 04:13] LABS: Hematocrit 32.5 % (39.0-52.0); Hemoglobin 11.2 g/dL (13.0-18.0); Mean Corp Hgb Conc. 34.5 g/dL (33.0-37.0); Mean Corpuscular Hgb 30.9 pg (27.0-31.0); Mean Corpuscular Volume 89.5 fL (80.0-94.0); Mean Platelet Volume 9.8 fL (7.4-10.4); Platelet Count 141 10^3/uL (130-400); Red Blood Cell Count 3.63 10^6/uL (4.70-6.10); White Blood Cell Count 8.9 10^3/uL (4.8-10.8)
[2024-06-30] MEDS: TYLENOL 1000 MG PO (04:16)
[2024-06-30 04:37] VITALS: BMI 27.2
[2024-06-30 04:59] LABS: Blood Urea Nitrogen 17 mg/dl (9-20); Calcium 9.1 mg/dl (8.4-10.2); Carbon Dioxide 29 mmol/L (22-30); Chloride 102 mmol/L (98-107); Estimated Creatinine Clearance 94 ml/min; Glucose 104 mg/dl (70-99); Magnesium 2.1 mg/dl (1.6-2.3); Potassium 4.8 mmol/L (3.5-5.1); Sodium 138 mmol/L (135-145); eGFR > 60.00
[2024-06-30 07:51] VITALS: BP 126/73
[2024-06-30] MEDS: LIDOCAINE 4% PATCH TOPICAL (08:46)
[2024-06-30] MEDS: MAGNESIUM OXIDE 500 MG PO (08:48)
[2024-06-30] MEDS: COLCHICINE 0.3 MG PO (08:48)
[2024-06-30] MEDS: SENOKOT-S 1 TABLET PO (08:48)
[2024-06-30] MEDS: LOW STRENGTH ASPIRIN 81 MG PO (08:48)
[2024-06-30] MEDS: FEOSOL 325 MG PO (08:48)
[2024-06-30] MEDS: PROTONIX 40 MG PO (08:49)
[2024-06-30] MEDS: NEURONTIN 100 MG PO (08:49)
[2024-06-30] MEDS: PACERONE 200 MG PO (08:49)
[2024-06-30] MEDS: LOPRESSOR 12.5 MG PO (08:49)
[2024-06-30] MEDS: VITAMIN C 500 MG PO (08:49)
[2024-06-30] MEDS: BACTROBAN 2% OINTMENT 1 APPLIC NASAL (08:50)
[2024-06-30 09:00] VITALS: BP 122/74
[2024-06-30 09:06] VITALS: BP 153/79
[2024-06-30 09:08] VITALS: BP 122/74; BP 153/79; PULSE 81; O2SAT 100; O2SAT 99
--- NOTE | 2024-06-30 09:50 | W.PN.CARDCBS ---
Addendum entered and electronically signed by Gary Canada MD 06/30/24 12:30:
I saw and examined the patient.
The Reversing Mill Roller's note was reviewed and I agree with the note.
Comment: Briefly, 58-year-old man with past medical history of severe aortic stenosis in the setting of bicuspid aortic valve and ascending thoracic aneurysm who underwent aortic valve and ascending aorta replacement on 06/27/2024
No cardiac complaints
Ambulating in the hallways
Telemetry was unremarkable overnight, patient is maintaining normal sinus rhythm
Volume status appears reasonable on exam
Agree with current cardiac meds
Stable cardiac status he should follow-up with his primary kraft mill operator Dr. Tidwell
Original Note:
Today's Communication / Plan
-
for DC today
Impression / Plan
-
PCP: Dr. Darrin Trevino
Primary Trimmer And Borer Machine Operator: Dr. Tidwell
Impression:
Bicuspid aortic valve
Severe s/p AVR and ascending aorta replacement 06/27/2024 w/ Dr Barros
Thoracic Aortic aneurysm
HLD
Echo 05/03/2024: EF 55 to 60%, GLS -18.2%, bicuspid aortic valve with severe , mean gradient 48 mmHg, ascending aorta dilation at 4.5 cm
Plan:
-Known bicuspid aortic valve with severe s/p SAVR and ascending aorta replacement 06/27/2024.
-in SR overnight upon review of tele
-continue asa, crestor, zetia, lopressor, colchicine
-ambulatory around halls without issues
-OP follow up with ATC
-for DC today
-d/w nursing
Progress Note - Trimmer And Borer Machine Operator
Subjective
Date of Service: June 30, 2024
no issues overnight. for DC today
Objective
Labs:
06/30/24 03:48
06/30/24 03:48
Labs
Hgb 11.2 g/dL (13.0-18.0) L 06/30/24 03:48
Hct 32.5 % (39.0-52.0) L 06/30/24 03:48
Plt Count 141 10^3/uL (130-400) 06/30/24 03:48
PT 15.0 Sec (11.4-14.6) H 06/28/24 03:24
INR 1.20 06/28/24 03:24
APTT 29.8 Sec (23.4-35.0) 06/27/24 11:32
Sodium 138 mmol/L (135-145) 06/30/24 03:48
Potassium 4.8 mmol/L (3.5-5.1) 06/30/24 03:48
BUN 17 mg/dl (9-20) 06/30/24 03:48
Creatinine 0.9 mg/dL (0.7-1.3) 06/30/24 03:48
Glucose 104 mg/dl (70-99) H 06/30/24 03:48
Vital Signs and I&O:
Vital Signs
Temp Pulse Resp BP Pulse Ox
97.9 F 69 20 153/79 97
06/30/24 08:00 06/30/24 09:45 06/30/24 07:48 06/30/24 09:06 06/30/24 07:48
Vital Signs
Temp Pulse Resp BP Pulse Ox
97.9 F 69 20 153/79 97
06/30/24 08:00 06/30/24 09:45 06/30/24 07:48 06/30/24 09:06 06/30/24 07:48
Intake & Output
06/28/24 06/29/24 06/30/24 07/01/24
07:59 07:59 07:59 07:59
Intake Total 1135.3 / 1146.5 224.8 / 224.8 130 / 490 360 / 360
Output Total 1720 / 1760 1305 / 1305 2009
Balance -584.7 / -613.5 -1080.2 / -1080.2 -1880 / -1520 360 / 360
Physical Exam
Physical Exam
GEN: No distress, awake, alert, oriented x3. sitting in chair
HEENT: supple, anicteric, mmm, eomi
LUNGS: no audible wheezes
CV: SR on tele
NEURO: Gross non-focal
SKIN: Warm, pink, dry. No rash.
--- NOTE | 2024-06-30 10:47 | W.DCSUMMARY ---
Discharge Summary
Discharge Data
Date of Admission: 06/27/24
Date of Discharge: 07/06/24
-
Pending Results: No
Hospital Course
Primary care physician: Darrin Trevino
Outpatient assistant professor: Michael Dudley
Inpatient consultants: [facility]
Procedures:
1. Aortic valve replacement and ascending aortic replacement
Primary Diagnosis:
1. Bicuspid aortic valve with severe aortic stenosis and thoracic aortic aneurysm
Secondary Diagnoses:
1. Hyperlipidemia
2. S/p R TKA, 05/25/2023
3. S/P Achilles repair, 1989
4. Postop pericarditis
HPI: 58-year-old male with no bicuspid aortic valve, severe aortic stenosis and a dilated ascending aorta, was electively admitted on 06/27/2024 for aortic valve replacement and ascending aortic replacement.
Hospital course: Patient underwent aortic valve replacement [#25 mm bioprosthesis] and ascending aortic replacement #30 mm Hemashield tube graft spanning from the level of the commissures up to the distal ascending aorta by Dr. Brian Barros.
Postprocedure TAHIRA reported a normal ejection fraction, aortic valve mean gradient of 4 mmHg, and no paravalvular leak. Patient returned to CVICU on Levophed, insulin, Precedex. He received lactated Ringer's to 50 cc bolus x 2 and Toradol for
pericardial rub. Patient was extubated at 1525 on the day of surgery. Postoperative day #1, colchicine was initiated for pericarditis evident on EKG. Beta-mily, aspirin, and Amio for A-fib prophylaxis were initiated. On postoperative day #2,
a bipolar ventricular pacing wire was pulled and mediastinal chest tubes were removed. On postoperative day #3, right IJ Cordis was removed and 2 view chest x-ray was completed which reported stable cardiac silhouette and no pneumothorax.
Hemoglobin remained stable at 11.2 and creatinine was stable at 0.9. Patient ambulated in halls and completed steps with cardiac rehab without difficulty. Patient is deemed stable for discharge to home. He will be going to stay with his
[id number] in [place] until Thursday. Scripts will be sent to local [facility] pharmacy.
Home medication changes:
Discharge Plan
-
Patient Disposition: Home (Routine Discharge)
Discharge Diagnosis/Procedures: aortic stenosis/ascending aorta aneurysm s/p AVR & Asc. aorta replacement
Condition: Good
Diet: No restrictions
Activity: No strenuous activity
Driving Restrictions: Not until seen by your Dr
Bathing Restrictions: OK to Shower
Other Services: Cardiac Rehab
Specialty Instructions: Weigh Daily- Call MD for wt gain/loss 3 lbs overnight/5 lbs in 1 week
Activity Restrictions/Additional Instructions:
Please call [facility] at [phone] to schedule your Orientation and First Exercise appointment upon hospital discharge.
Referrals:
Michael Dudley MD [Other] - 08/23/24 8:30 am
CT Transitional Care Nurse [Outside] (The Cardiothoracic Transitional Care Nurse will call you to set up a visit in 1-2 days.)
Brian Barros MD [Active] - 07/27/24 2:45 pm
UNKNOWN - PT PARKER,INTERVIEWE [Unknown Provider] -
Prescriptions:
New
acetaminophen 325 mg Tablet
650 mg PO Q4HPRN PRN (Reason: mild pain,headache,temp >101F ) Qty: 0 0RF
aspirin 81 mg Tablet,Chewable
81 mg PO DAILY Qty: 0 0RF
cyclobenzaprine 10 mg Tablet
5 mg PO Q8HPRN PRN (Reason: muscle spasm) Qty: 20 0RF
gabapentin 100 mg Capsule
100 mg PO TID Qty: 30 0RF
colchicine 0.6 mg Tablet
0.3 mg PO DAILY Qty: 30 0RF
oxycodone 5 mg Tablet
5 mg PO Q6HPRN PRN (Reason: severe pain) Qty: 10 0RF
metoprolol succinate [Toprol XL] 25 mg tablet extended release 24 hr
25 mg PO DAILY Qty: 30 1RF
Continued
ezetimibe [Zetia] 10 mg Tablet
10 mg PO HS
rosuvastatin 20 mg Tablet
20 mg PO HS
Discharge Orders:
Discharge Patient (As Directed); Ordered 06/30/24
Ordered By: Allyssa Louis
Care Plan Goals
Care Plan Goals:
Problem: Readiness for enhanced knowledge related to diagnosis and treatment plan
Goal: Understand your diagnosis and treatment plan needs, including medications if applicable.
Instructions: Know your diagnosis, underlying causes and treatment plan options, including medications if applicable. Consult with your health care team to learn about your diagnosis and treatment plan, including medications if applicable.
Discharge Date and Time
Discharge Date/Time: 06/30/24 12:49
Print Language: [email or web address]
[2024-06-30 11:34] VITALS: BP 133/80
== END 2024-06-30 12:49 | disposition home or self-care (01) | DRG 220 ==
LOC: IVU 04:51
PROVIDERS: Anesthesiology; Nurse Practitioner; ADMITTING PHYSICIAN Thoracic Surgery (Cardiothoracic Vascular Surgery); OTHER PHYSICIAN Internal Medicine Critical Care Medicine
PROC: 02RF08Z Replacement of Aortic Valve with Zooplastic Tissue, Open Approach (ICD-10-PCS; 2024-06-27)
PROC: 5A1221Z Performance of Cardiac Output, Continuous (ICD-10-PCS; 2024-06-27)
PROC: B24BZZ4 Ultrasonography of Heart with Aorta, Transesophageal (ICD-10-PCS; 2024-06-27)
PROC: 02RX0JZ Replacement of Thoracic Aorta, Ascending/Arch with Synthetic Substitute, Open Approach (ICD-10-PCS; 2024-06-27)
PROC: 5A09357 Assistance with Respiratory Ventilation, Less than 24 Consecutive Hours, Continuous Positive Airway Pressure (ICD-10-PCS; 2024-06-27)
DX: Q23.1 Congenital insufficiency of aortic valve (principal); D62 Acute posthemorrhagic anemia; I30.9 Acute pericarditis, unspecified; I48.3 Typical atrial flutter; I50.32 Chronic diastolic (congestive) heart failure; J98.11 Atelectasis; I71.21 Aneurysm of the ascending aorta, without rupture; E78.5 Hyperlipidemia, unspecified; I48.0 Paroxysmal atrial fibrillation; E86.1 Hypovolemia; E87.70 Fluid overload, unspecified; Z79.899 Other long term (current) drug therapy
CPT/HCPCS: 88305; 88311; 36415; 71045; 71046; 80048; 80053; 81003; 82248; 82330; 82565; 82805; 82947; 82962; 83036; 83735; 84132; 84302; 84520; 85014; 85018; 85025; 85027; 85049; 85610; 85730; 86803; 86850; 86900; 86901; 86920; 87070; 93005; 93312; 93320; 93325; 93880; 94002; J2916; P9045

== ENCOUNTER → 2025-01-05 14:40 | Outpatient (REF) | payer BC, SELFPAY | LOC: RCS 14:40 | PROVIDERS: ATTENDING PHYSICIAN Thoracic Surgery (Cardiothoracic Vascular Surgery) | DX: Z95.828 Presence of other vascular implants and grafts (principal); Z95.2 Presence of prosthetic heart valve | CPT/HCPCS: 71275; 93306; Q9967 ==